=== PATIENT | female | born 1950 | race Caucasian/White ===

== ENCOUNTER 2020-12-09 21:09 | Emergency (ER) | payer OTHER, MEDICARE, SELFPAY ==
--- NOTE | ~2020-12-09 | XR_ITS ---
XR forearm LT 2V DATE: 12/09/2020 21:29 INDICATION: Fall. Distal left arm pain. TECHNIQUE: 3 views COMPARISON: None FINDINGS: There is a virtually nondisplaced transverse distal radial metaphyseal fracture with mild a pex anterior angulation and minimal dorsal inclination of the distal radial articular surface. Alignment is intact at the elbow and wrist joints. IMPRESSION: Distal radial metaphyseal fracture Reviewed, dictated and finalized at location A.
[2020-12-09 21:33] VITALS: BP 143/67; PULSE 77; RESP 18; O2SAT 100
[2020-12-09] MEDS: ACETAMINOPHEN 325 MG TABLET 650 MG PO (23:11)
--- NOTE | 2020-12-09 23:28 | ED_ITS ---
HPI - Extremity Injury (Upper) General Chief Complaint: Extremity Injury, Upper Stated Complaint: left arm pain Time Seen by Provider: 12/09/20 22:55 Source: patient Mode of arrival: ambulatory Limitations: no limitations History of Present Illness HPI narrative: 70-year-old female Here for left wrist injury after a fall Patient was in the area visiting her daughter and was walking down into the yard off of their deck and slipped on the steps She fell down 1 or 2 steps but mostly landed with her left wrist outstretched behind her She has pain in the distal left forearm and a mild amount of swelling no numb ness or weakness No other injuries, no back pain, did not strike her head Related Data Allergies Allergy/AdvReac Type Severity Reaction Status Date / Time No Known Allergies Allergy Verified 12/09/20 21:11 Review of Systems Constitutional: Constitutional: Denies fever(s) and Denies weakness Cardiovascular: Cardiovascular: Denies chest pain, Denies rapid heart rate and Denies radiating jaw, neck or arm pain Gastrointestinal: Gastrointestinal: Denies nausea and Denies vomiting Musculoskeletal: Musculoskeletal: Reports arthralgias and Reports joint swelling Neurologic: Denies numbness and Denies weakness Exam Const: General: healthy appearing and alert Orientation/consciousness: patient oriented x3 HENMT: Head: normal to inspection, no contusions and no hematomas Eyes: Conjunctivae: conjunctivae normal EOM: EOMs intact bilaterally Resp: Effort & Inspection: normal respiratory effort and not labored Neuro: General: patient oriented x3 and no focal motor deficits Speech: normal speech Extrem: Other: Swelling, tenderness, and slight dorsal angular deformity to left wrist Normal wrist pulses, normal sensation in all distributions in the hand, neuro normal cap refill, moves all fingers Course Course Emergency Course: Splint applied per tech Vital Signs Vital signs: Vital Signs Pulse Rate 77 12/09/20 21:33 Respiratory Rate 18 12/09/20 21:33 Blood Pressure 143/67 H 12/09/20 21:33 Pulse Oximetry 100 12/09/20 21:33 Pulse Rate 77 12/09/20 21:33 Respiratory Rate 18 12/09/20 21:33 Blood Pressure 143/67 H 12/09/20 21:33 Pulse Oximetry 100 12/09/20 21:33 MDM - Extremity Injury (Upper) Imaging Data Radiologist's impression: ITS Impressions Forearm X-Ray 12/09/20 21:32 IMPRESSION: Distal radial metaphyseal fracture Discharge Plan Discharge Clinical Impression: Distal radius fracture, left Patient Disposition: Home, Self-Care Condition: Stable Instructions: Wrist Fracture in Adults (ED), How to Use a Sling (ED) Additional Instructions: You will need to follow-up with orthopedics for definitive care, either see Dr. Buchanan here or your orthopedic surgeon of choice near your home Prescriptions: New hydrocodone-acetaminophen 5-325 mg tablet 1 tablet PO Q6H PRN (Reason: pain) Qty: 12 RF: 0 Follow-up/Referrals: Maurilio,Clint [Other] Usman Buchanan MD [Physician] - (ortho )
--- NOTE | 2020-12-26 12:39 | PC.NURSE ---
LATE ENTRY This note is being entered to document information to the patient's record. The following information was omitted on [12/09/20 ], by [Alberta Grady RN and Dr. William Martinez]. VORB for short arm Volar spint, applied to left lower arm,
== END 2020-12-09 23:49 | disposition home or self-care (01) ==
PROVIDERS: Emergency Provider Emergency Medicine
DX: S59.292A Other physeal fracture of lower end of radius, left arm, initial encounter for closed fracture (principal); W10.9XXA Fall (on) (from) unspecified stairs and steps, initial encounter
CPT/HCPCS: 29125; 73090; 99284; A4565; A9270